=== PATIENT | male | born 1965 | race Caucasian/White ===

== ENCOUNTER 2021-10-13 10:12 | Emergency (ER) | payer OTHER, MEDICAID ==
[~2021-10-13] VITALS: Ht 172.7 cm; Wt 77.1 kg
[2021-10-13 10:14] VITALS: BP_SYST 198
[2021-10-13] MEDS ORDERED: cloNIDine HCL 0.1 MG TABLET PO ONE (10:30)
[2021-10-13 10:45] VITALS: BP_SYST 152
== END 2021-10-13 10:57 | disposition home or self-care (01) ==
LOC: SED 10:12
DX: Z00.00 Encounter for general adult medical examination without abnormal findings (principal)
CPT/HCPCS: 99283